=== PATIENT | female | born 1990 | race American Indian/Alaskan Native ===

== ENCOUNTER 2020-05-12 14:45 | Emergency (ER) | payer OTHER ==
[2020-05-12 15:02] VITALS: BP 115/74
--- NOTE | 2020-05-12 15:31 | Emergency Department Report ---
ED Extremity Problem HPI - General Chief complaint: Extremity Problem,Nontraumatic Stated complaint: COLLAR BONE PAIN Time Seen by Provider: 05/12/20 15:27 Source: patient Mode of arrival: Ambulatory Limitations: No Limitations - History of Present Illness Initial comments: Patient is a 30-year-old female presents emergency room with complaints of "righ t collarbone pain" that began 3 days ago. She denies any fall or injury. She states that she slept wrong and has had pain since then. She states she has pain with movement. She denies any fever, vomiting, diarrhea, numbness, weakness, shortness of breath. Has a past medical history of sickle cell trait and palpitations. No allergies to medications. Last mental cycle a week ago. Severity scale (0 -10): 10 - Related Data Previous Rx's Medication Instructions Recorded Last Taken Type Menthol/Camphor [[place] 1 applicatio TP BID #18 oint...g. 05/12/20 Unknown Rx Ointment] Naproxen [EC-Naprosyn] 500 mg PO BID PRN #14 tablet. 05/12/20 Unknown Rx methOCARBAMOL [Robaxin TAB] 500 mg PO BID 7 Days #14 tab 05/12/20 Unknown Rx Allergies Allergy/AdvReac Type Severity Reaction Status Date / Time No Known Allergies Allergy Unverified 05/12/20 15:02 ED Review of Systems ROS: Stated complaint: COLLAR BONE PAIN Other details as noted in HPI Comment: All other systems reviewed and negative ED Past Medical Hx - Past Medical History Previous Medical History?: Yes Additional medical history: States she has Sickle Cell Trait. - Surgical History Past Surgical History?: No - Medications Home Medications: Home Medications Medication Instructions Recorded Confirmed Last Taken Type Menthol/Camphor [[place] 1 applicatio TP BID #18 oint...g. 05/12/20 Unknown Rx Ointment] Naproxen [EC-Naprosyn] 500 mg PO BID PRN #14 tablet. 05/12/20 Unknown Rx methOCARBAMOL [Robaxin TAB] 500 mg PO BID 7 Days #14 tab 05/12/20 Unknown Rx ED Physical Exam - General Limitations: No Limitations General appearance: alert, in no apparent distress - Head Head exam: Present: atraumatic, normocephalic - Eye Eye exam: Present: normal appearance - ENT ENT exam: Present: mucous membranes moist - Neck Neck exam: Present: normal inspection, full ROM. Absent: tenderness - Respiratory Respiratory exam: Present: normal lung sounds bilaterally. Absent: respiratory distress, wheezes, rales, rhonchi, stridor, chest wall tenderness, accessory muscle use, decreased breath sounds, prolonged expiratory - Cardiovascular Cardiovascular Exam: Present: regular rate, normal rhythm, normal heart sounds. Absent: systolic murmur, diastolic murmur, rubs, gallop - Extremities Exam Extremities exam: Present: other (no bony ttp of the right clavicles, clavicles are equal, no deformity, no ecchymosis, no edema, no sulcus sign of the right shoulder, FROM of the RUE, she is able to lift the RUE above the head, she has mild discomfort upon lifting the arm above the head, neurovascularly intact) - Neurological Exam Neurological exam: Present: alert, oriented X3, CN II-XII intact, normal gait. Absent: motor sensory deficit - Psychiatric Psychiatric exam: Present: normal affect, normal mood - Skin Skin exam: Present: warm, dry, intact ED Course Vital Signs 05/12/20 15:01 Temperature 98.2 F Pulse Rate 87 Respiratory 16 Rate Blood Pressure 115/74 [Left] O2 Sat by Pulse 97 Oximetry ED Medical Decision Making - Medical Decision Making Patient is a 30-year-old female presents emergency room with complaints of "right collarbone pain" that began 3 days ago. She denies any fall or injury. She states that she slept wrong and has had pain since then. She states she has pain with movement. She denies any fever, vomiting, diarrhea, numbness, weakness, shortness of breath. Has a past medical history of sickle cell trait and palpitations. No allergies to medications. Last mental cycle a week ago. vitals are normal. on exam:no bony ttp of the right clavicles, clavicles are equal, no deformity, no ecchymosis, no edema, no sulcus sign of the right shoulder, FROM of the RUE, she is able to lift the RUE above the head, she has mild discomfort upon lifting the arm above the head, neurovascularly intact. Patient has had no acute trauma. She has no bony tenderness, no deformities, she is able to lift arm above the head, she is neurovascularly intact. No signs of septic joint or DVT. Symptoms likely muscular given that she states that she slept wrong. Patient will be referred to orthopedic. Patient given prescription for naproxen, Robaxin, [place] balm ointment. Advised patient Please use medication as prescribed. Do not drive or operate machinery while taking muscle relaxer Robaxin. May use ice pack, heating pad, rest, Epson salt bath. Please continue to move the arm and clavicle. Follow-up with a orthopedic doctor. Return to emergency room for any new or worsening symptoms. Critical care attestation.: If time is entered above; I have spent that time in minutes in the direct care of this critically ill patient, excluding procedure time. ED Disposition Clinical Impression: Pain of right clavicle Disposition: DC- TO HOME OR SELFCARE Is pt being admited?: No Does the pt Need Aspirin: No Condition: Stable Instructions: Musculoskeletal Pain Additional Instructions: Please use medication as prescribed. Do not drive or operate machinery while taking muscle relaxer Robaxin. May use ice pack, heating pad, rest, Epson salt bath. Please continue to move the arm and clavicle. Follow-up with a orthopedic doctor. Return to emergency room for any new or worsening symptoms. Prescriptions: Naproxen [EC-Naprosyn] 500 mg PO BID PRN #14 tablet.dr MADRIGAL Reason: pain methOCARBAMOL [Robaxin TAB] 500 mg PO BID 7 Days #14 tab Menthol/Camphor [[place] Ointment] 1 applicatio TP BID #18 oint...g. Referrals: VIKRAM BHANDARI MD [Staff Physician] - 2-3 Days [facility] [Provider Group] - 2-3 Days Forms: Work/School Release Form(ED) Time of Disposition: 15:35 Print Language: MARSHALLESE
== END 2020-05-12 15:48 | disposition home or self-care (01) ==
LOC: ED 14:45
DX: M25.511 Pain in right shoulder (principal); Z79.899 Other long term (current) drug therapy
CPT/HCPCS: 99282